=== PATIENT | female | born 1955 | race Caucasian/White ===

== ENCOUNTER → 2016-07-12 | Outpatient (CLI) | payer OTHER ==
[~2016-07-12] MED LIST: CALCIUM 600 W/D1 TAB PO; FERROUS SU325 MG/TAB PO; FOLIC ACID 40400 MCG PO; GLUCOSAMINE/CHONDROI PO; HCTZ 25MG25 MG PO; LORTAB 7.5/5001 TAB PO; METOPROLOL100 MG PO; MULTI VITAMINS1 TAB PO; OXYCODONE5 MG PO; PSEUDOPHEDRINE30 MG PO; SYNTHROID0.1 MG PO; TYLENOL 500MG500 MG PO; VITAMIN C BUFF500 MG PO
== END ==
LOC: MC.RAD 08:56
DX: Z12.31 Encounter for screening mammogram for malignant neoplasm of breast (principal)

== ENCOUNTER → 2017-08-22 | Outpatient (CLI) | payer BC | LOC: MC.RAD 08-19 09:00 | DX: Z12.31 Encounter for screening mammogram for malignant neoplasm of breast (principal) ==

== ENCOUNTER → 2018-09-01 | Outpatient (CLI) | payer BC | LOC: MC.RAD 09:00 | DX: Z12.31 Encounter for screening mammogram for malignant neoplasm of breast (principal) ==

== ENCOUNTER → 2019-09-20 | Outpatient (CLI) | payer BC, MEDICARE, OTHER | LOC: MC.RAD 09:29 | DX: Z12.31 Encounter for screening mammogram for malignant neoplasm of breast (principal); Z01.411 Encounter for gynecological examination (general) (routine) with abnormal findings ==

== ENCOUNTER 2019-11-26 15:24 | Emergency (ER) | payer MEDICARE, OTHER ==
[~2019-11-26] VITALS: Ht 170.2 cm; Wt 95.5 kg
[2019-11-26] MEDS ORDERED: TOPROL XL100 MG PO (18:13)
[2019-11-26] MEDS ORDERED: HCTZ 25MG TAB25 MG PO (18:13)
[2019-11-26] MEDS ORDERED: NEURONTIN300 MG/CAP PO (18:14)
[2019-11-26] MEDS ORDERED: GLUCOPHAGE500 MG/TAB PO ×2 (18:14)
[2019-11-26] MEDS ORDERED: SYNTHROID0.1 MG/TAB PO (18:14)
[2019-11-26] MEDS ORDERED: MELATONIN5 M1 SL (18:15)
[2019-11-26 18:18] VITALS: BP 112/79; TEMP 97.7
[2019-11-26] MEDS ORDERED: NORCO 325 MG-51 TAB PO (18:34)
[2019-11-26 18:53] VITALS: PULSE 77
== END 2019-11-26 19:00 | disposition home or self-care (01) ==
LOC: COL.ER 15:24
DX: S52.121A Displaced fracture of head of right radius, initial encounter for closed fracture (principal); S80.211A Abrasion, right knee, initial encounter; R40.2410 Glasgow coma scale score 13-15, unspecified time; E11.9 Type 2 diabetes mellitus without complications; I10 Essential (primary) hypertension; Z79.84 Long term (current) use of oral hypoglycemic drugs; V19.9XXA Pedal cyclist (driver) (passenger) injured in unspecified traffic accident, initial encounter; Y92.410 Unspecified street and highway as the place of occurrence of the external cause
CPT/HCPCS: Q4041

== ENCOUNTER → 2021-05-28 | Outpatient (CLI) | payer MEDICARE, OTHER ==
[~2021-05-28] MED LIST changes: +GLUCOPHAGE500 MG/TAB PO; +HCTZ 25MG TAB25 MG PO; +MELATONIN5 M1 SL; +NEURONTIN300 MG/CAP PO; +NORCO 325 MG-51 TAB PO; +SYNTHROID0.1 MG/TAB PO; +TOPROL XL100 MG PO
== END ==
LOC: MC.RAD 09:55
DX: Z12.31 Encounter for screening mammogram for malignant neoplasm of breast (principal)

== ENCOUNTER → 2021-06-01 | Outpatient (CLI) | payer MEDICARE, OTHER | LOC: MC.RAD 10:27 | DX: N64.89 Other specified disorders of breast (principal) ==